=== PATIENT | female | born 1985 | race Hispanic/Latino ===

== ENCOUNTER 2017-03-12 17:25 | Emergency (ER) | payer BC ==
[2017-03-12] MEDS ORDERED: Lidocaine 1% w/Epinephrine 1:100K 20 ML VIAL ONE (17:45)
[2017-03-12] MEDS ORDERED: Triple Antibiotic Oint 1 GM Packet ONE (18:17)
== END 2017-03-12 18:26 | disposition home or self-care (01) ==
LOC: NAV ERS 17:25
DX: S61.411A Laceration without foreign body of right hand, initial encounter (principal); W26.8XXA Contact with other sharp object(s), not elsewhere classified, initial encounter
CPT/HCPCS: 12001; J2001

== ENCOUNTER 2018-06-14 12:36 | Outpatient (CLI) | payer BC ==
--- NOTE | 2018-06-14 13:51 | RAD ---
RIGHT ANKLE RADIOGRAPHS THREE VIEWS: 06/14/2018 PROVIDED CLINICAL HISTORY: Right ankle pain. FINDINGS: No evidence for fracture or other acute osseous abnormality. Alignment appears anatomic. Joint spac es appear preserved. IMPRESSION: No evidence for an acute osseous abnormality. If there is persistent clinical concern, conservative management and follow-up imaging are advised. POS: [facility]
== END 2018-06-14 12:37 | disposition home or self-care (01) ==
LOC: NAV RAD 12:36
PROVIDERS: ATTEND Nurse Practitioner Adult Health
DX: S99.911A Unspecified injury of right ankle, initial encounter (principal); M25.571 Pain in right ankle and joints of right foot

== ENCOUNTER 2019-05-10 19:04 | Outpatient (CLI) | payer OTHER ==
[2019-05-10 20:34] LABS: BHCG - Serum Negative (NEGATIVE); Pregs Control Bar Appear? YES (CONTROL BAR)
== END 2019-05-10 19:05 | disposition home or self-care (01) ==
LOC: NAV LAB 19:04
DX: Z00.00 Encounter for general adult medical examination without abnormal findings (principal)
CPT/HCPCS: 84703

== ENCOUNTER 2019-07-09 15:32 | Outpatient (CLI) | payer OTHER ==
[2019-07-09 16:04] LABS: BHCG - Serum POSITIVE (NEGATIVE); Pregs Control Background? CLEAR/WHITE (CLR/WHITE); Pregs Control Bar Appear? YES (CONTROL BAR)
== END 2019-07-09 15:33 | disposition home or self-care (01) ==
LOC: NAV LAB 15:32
DX: Z00.00 Encounter for general adult medical examination without abnormal findings (principal)
CPT/HCPCS: 84703

== ENCOUNTER 2023-01-30 08:18 | Outpatient (CLI) | payer BC | END 2023-01-30 08:19 | disposition home or self-care (01) | LOC: NAV RAD 08:18 | PROVIDERS: ATTEND Family Medicine | DX: R07.81 Pleurodynia (principal); J90 Pleural effusion, not elsewhere classified; R91.8 Other nonspecific abnormal finding of lung field | CPT/HCPCS: 71046 ==